=== PATIENT | female | born 1945 | race Caucasian/White ===

== ENCOUNTER 2019-02-25 03:00 | Inpatient (IN) | payer MEDICARE ==
[~2019-02-25] VITALS: Ht 162.6 cm; Wt 72.5 kg
[~2019-02-25 03:00] MED LIST: ALBU8.5H8 INH; DOXY100T PO; FLUT1BLS INH; GUAI600T31 PO; LEVO50TA PO; NICO-486 TD; OXYC5TAB2 PO; PRED20TA PO; UMEC1DIS INH
[2019-02-25] MEDS ORDERED: methylPREDNISolone SOD SUCC 125 MG/2 ML ONE (03:05)
[2019-02-25] MEDS ORDERED: methylPREDNISolone SOD SUCC 125 MG/2 ML IVPush STA (03:06)
[2019-02-25] MEDS ORDERED: MAGNESIUM SULFATE PMX 2GM/50ML 50 ML ONE (03:16)
--- NOTE | 2019-02-25 03:29 | NUR ---
Pt breathing significantly better and no longer utilizing accessory muscles. Talking in full sentences and pallor is better. Md aware. Md states no need for bipap and to place pt on oxi-mask. Oxi-mask applied.
[2019-02-25] MEDS ORDERED: LORazepam 2 MG/ML, 1ML IVPush ONE (03:30)
[2019-02-25] MEDS ORDERED: AZITHROMYCIN 500 MG in SODIUM CHLORIDE 0.9% 250 ML IVPB ONE (03:30)
[2019-02-25] MEDS ORDERED: MAGNESIUM SULFATE PMX 2GM/50ML 50 ML IV ONE (03:30)
[2019-02-25] MEDS ORDERED: ALBUTEROL 0.5%, 20ML NPPB SCH (03:30)
[2019-02-25 04:02] LABS: ALBUMIN 3.9 g/dL (3.4-5.0); ANION GAP 5 mmol/L (5-15); CALCIUM 9.1 mg/dL (8.5-10.1); CHLORIDE 104 mmol/L (98-107); CREATININE 0.83 mg/dL (0.55-1.02)
[2019-02-25 04:06] LABS: TROPONIN I < 0.015 ng/mL (0.000-0.045)
[2019-02-25 04:19] LABS: MEAN CORPUSCULAR HEMOGLOBIN 29.5 pg (27.0-34.8); MEAN CORPUSCULAR HGB CONC 32.4 g/dL (32.4-35.8); MEAN CORPUSCULAR VOLUME 90.8 fL (80-100); MEAN PLATELET VOLUME 12.4 fL (7.4-10.4); PLATELET COUNT 86 x10^3/uL (130-400); RED BLOOD COUNT 5.16 x10^6/uL (3.82-5.3); RED CELL DISTRIBUTION WIDTH 15.4 % (9.6-15.2)
[2019-02-25 04:40] LABS: BASOPHILS # (AUTO) 0.04 x10^3/uL (0-0.1); BASOPHILS % (AUTO) 1 % (0-1); EOSINOPHILS # (AUTO) 0.48 x10^3/uL (0-0.4); EOSINOPHILS % (AUTO) 6 % (1-7); LYMPHOCYTES % (AUTO) 30 % (22-44); MD SCAN; MONOCYTES # (AUTO) 0.45 x10^3/uL (0.2-0.8); MONOCYTES % (AUTO) 6 % (2-9); NEUTROPHILS # (AUTO) 4.52 x10^3/uL (1.8-6.8); NEUTROPHILS % (AUTO) 57 % (42-75)
--- NOTE | 2019-02-25 04:45 | NUR ---
Pt resting comfortably on gurney. Rr even and unlabored. Nadn. Talking in full sentences. All results back. Awaiting adm orders.
[2019-02-25] MEDS ORDERED: CEFTRIAXONE PMX 1GM/50ML 50 ML IV ONE (05:00)
[2019-02-25] MEDS ORDERED: CEFTRIAXONE PMX 1GM/50ML 50 ML ONE (05:03)
[2019-02-25 05:44] LABS: RAPID INFLUENZA A Negative (Negative); RAPID INFLUENZA B Negative (Negative)
[2019-02-25 08:00] VITALS: BP 124/72
[2019-02-25] MEDS: AZITHROMYCIN 500 MG TABLET PO SCH (10:18)
[2019-02-25] MEDS: methylPREDNISolone SOD SUCC 125 MG/2 ML IVPush SCH ×2 (10:18→16:58)
[2019-02-25] MEDS: ALBUTEROL SULFATE 2.5 MG/3 ML NPPB SCH ×2 (14:20→20:26)
[2019-02-25 15:43] VITALS: BP 106/63
[2019-02-25] MEDS: CEFTRIAXONE PMX 1GM/50ML 50 ML IV SCH (16:58)
[2019-02-25] MEDS: BUDESONIDE 0.5 MG/2 ML INHA NPPB SCH (20:26)
[2019-02-25 20:56] VITALS: BP 128/76
[2019-02-25 21:24] LABS: MICROSCOPIC AUTO
[2019-02-25 21:25] LABS: CULTURE INDICATED? YES
[2019-02-25] MEDS: TRAZODONE 50MG TABLET PO PRN (23:12)
[2019-02-26] MEDS: methylPREDNISolone SOD SUCC 125 MG/2 ML IVPush SCH ×3 (01:31→17:09)
[2019-02-26] MEDS: ALBUTEROL SULFATE 2.5 MG/3 ML NPPB SCH ×4 (02:17→19:27)
[2019-02-26 05:20] LABS: ANION GAP 3 mmol/L (5-15); CALCIUM 9.2 mg/dL (8.5-10.1); CHLORIDE 104 mmol/L (98-107); CREATININE 0.82 mg/dL (0.55-1.02)
[2019-02-26 05:27] LABS: BASOPHILS # (AUTO) 0.02 x10^3/uL (0-0.1); BASOPHILS % (AUTO) 0 % (0-1); EOSINOPHILS % (AUTO) 0 % (1-7); LYMPHOCYTES % (AUTO) 7 % (22-44); MD NO; MEAN CORPUSCULAR HGB CONC 32.6 g/dL (32.4-35.8); MEAN PLATELET VOLUME 11.2 fL (7.4-10.4); MONOCYTES # (AUTO) 0.18 x10^3/uL (0.2-0.8); MONOCYTES % (AUTO) 1 % (2-9); NEUTROPHILS # (AUTO) 14.25 x10^3/uL (1.8-6.8); NEUTROPHILS % (AUTO) 92 % (42-75); PLATELET COUNT 129 x10^3/uL (130-400); RED BLOOD COUNT 5.12 x10^6/uL (3.82-5.3); RED CELL DISTRIBUTION WIDTH 15.1 % (9.6-15.2)
[2019-02-26 06:57] VITALS: BP 137/74
[2019-02-26] MEDS: BUDESONIDE 0.5 MG/2 ML INHA NPPB SCH ×2 (07:40→19:27)
[2019-02-26] MEDS: AZITHROMYCIN 500 MG TABLET PO SCH (09:35)
[2019-02-26 12:48] VITALS: BP 113/67
[2019-02-26] MEDS: CEFTRIAXONE PMX 1GM/50ML 50 ML IV SCH (17:09)
[2019-02-26 19:19] VITALS: BP 120/69
[2019-02-26] MEDS: TRAZODONE 50MG TABLET PO PRN (22:22)
[2019-02-27] MEDS: methylPREDNISolone SOD SUCC 125 MG/2 ML IVPush SCH ×3 (01:08→16:34)
[2019-02-27 02:16] VITALS: BP 123/76
[2019-02-27] MEDS: ALBUTEROL SULFATE 2.5 MG/3 ML NPPB SCH ×4 (03:00→20:02)
[2019-02-27 07:36] LABS: ALBUMIN 3.6 g/dL (3.4-5.0); CALCIUM 8.7 mg/dL (8.5-10.1)
[2019-02-27 07:37] LABS: MEAN CORPUSCULAR HEMOGLOBIN 29.9 pg (27.0-34.8); MEAN CORPUSCULAR HGB CONC 32.7 g/dL (32.4-35.8); MEAN CORPUSCULAR VOLUME 91.7 fL (80-100); MEAN PLATELET VOLUME 9.6 fL (7.4-10.4); PLATELET COUNT 181 x10^3/uL (130-400); RED BLOOD COUNT 4.77 x10^6/uL (3.82-5.3); RED CELL DISTRIBUTION WIDTH 15.4 % (9.6-15.2)
[2019-02-27 07:40] LABS: ALANINE AMINOTRANSFERASE 33 U/L (12-78); ALKALINE PHOSPHATASE 51 U/L (45-117); BILIRUBIN,TOTAL 0.5 mg/dL (0.2-1.0); CREATININE 0.77 mg/dL (0.55-1.02); TOTAL PROTEIN 7.1 g/dL (6.4-8.2)
[2019-02-27] MEDS: AZITHROMYCIN 500 MG TABLET PO SCH (07:43)
[2019-02-27] MEDS: BUDESONIDE 0.5 MG/2 ML INHA NPPB SCH ×2 (07:53→20:03)
[2019-02-27 07:54] LABS: BASOPHILS % (AUTO) 0 % (0-1); EOSINOPHILS % (AUTO) 0 % (1-7); LYMPHOCYTES # (AUTO) 0.66 x10^3/uL (1-3.4); LYMPHOCYTES % (AUTO) 5 % (22-44); MD SCAN; MONOCYTES # (AUTO) 0.26 x10^3/uL (0.2-0.8); MONOCYTES % (AUTO) 2 % (2-9); NEUTROPHILS # (AUTO) 11.63 x10^3/uL (1.8-6.8); NEUTROPHILS % (AUTO) 93 % (42-75)
[2019-02-27 08:00] LABS: ANION GAP 4 mmol/L (5-15); CHLORIDE 104 mmol/L (98-107)
[2019-02-27 08:08] VITALS: BP 133/78
[2019-02-27 14:17] VITALS: BP 110/64
[2019-02-27] MEDS: CEFTRIAXONE PMX 1GM/50ML 50 ML IV SCH (16:34)
[2019-02-27 21:00] VITALS: BP 133/68
[2019-02-28] MEDS: methylPREDNISolone SOD SUCC 125 MG/2 ML IVPush SCH ×4 (01:05→20:51)
[2019-02-28 02:00] VITALS: BP 121/75
[2019-02-28] MEDS: ALBUTEROL SULFATE 2.5 MG/3 ML NPPB SCH ×4 (02:04→19:44)
[2019-02-28 06:09] LABS: CHLORIDE 104 mmol/L (98-107)
[2019-02-28 06:15] LABS: BASOPHILS % (AUTO) 0 % (0-1); EOSINOPHILS % (AUTO) 0 % (1-7); LYMPHOCYTES # (AUTO) 0.46 x10^3/uL (1-3.4); LYMPHOCYTES % (AUTO) 4 % (22-44); MD NO; MEAN CORPUSCULAR HEMOGLOBIN 30.1 pg (27.0-34.8); MEAN CORPUSCULAR HGB CONC 32.4 g/dL (32.4-35.8); MEAN CORPUSCULAR VOLUME 92.7 fL (80-100); MEAN PLATELET VOLUME 9.6 fL (7.4-10.4); MONOCYTES # (AUTO) 0.24 x10^3/uL (0.2-0.8); MONOCYTES % (AUTO) 2 % (2-9); NEUTROPHILS # (AUTO) 10.44 x10^3/uL (1.8-6.8); NEUTROPHILS % (AUTO) 94 % (42-75); PLATELET COUNT 230 x10^3/uL (130-400); RED BLOOD COUNT 5.01 x10^6/uL (3.82-5.3); RED CELL DISTRIBUTION WIDTH 15.2 % (9.6-15.2)
[2019-02-28 06:18] LABS: ANION GAP 3 mmol/L (5-15); CALCIUM 8.8 mg/dL (8.5-10.1); CREATININE 0.78 mg/dL (0.55-1.02)
[2019-02-28 06:49] VITALS: BP 117/61
[2019-02-28] MEDS: AZITHROMYCIN 500 MG TABLET PO SCH (07:50)
[2019-02-28] MEDS: BUDESONIDE 0.5 MG/2 ML INHA NPPB SCH ×2 (09:52→19:44)
[2019-02-28 12:09] VITALS: BP 115/65
[2019-02-28] MEDS: PANTOPRAZOLE 20MG TABLET PO SCH (12:51)
[2019-02-28] MEDS: CEFTRIAXONE PMX 1GM/50ML 50 ML IV SCH (16:58)
[2019-02-28 19:19] VITALS: BP 126/69
[2019-03-01] MEDS: PANTOPRAZOLE 20MG TABLET PO SCH ×2 (00:20→12:26)
[2019-03-01 02:21] VITALS: BP 135/71
[2019-03-01] MEDS: ALBUTEROL SULFATE 2.5 MG/3 ML NPPB SCH ×4 (03:00→15:00)
[2019-03-01] MEDS: methylPREDNISolone SOD SUCC 125 MG/2 ML IVPush SCH ×2 (04:39→12:26)
[2019-03-01 06:17] LABS: BASOPHILS # (AUTO) 0.01 x10^3/uL (0-0.1); BASOPHILS % (AUTO) 0 % (0-1); EOSINOPHILS % (AUTO) 0 % (1-7); LYMPHOCYTES # (AUTO) 0.85 x10^3/uL (1-3.4); LYMPHOCYTES % (AUTO) 9 % (22-44); MD NO; MEAN CORPUSCULAR HEMOGLOBIN 30.1 pg (27.0-34.8); MEAN CORPUSCULAR HGB CONC 32.7 g/dL (32.4-35.8); MEAN CORPUSCULAR VOLUME 91.8 fL (80-100); MEAN PLATELET VOLUME 9.4 fL (7.4-10.4); MONOCYTES # (AUTO) 0.42 x10^3/uL (0.2-0.8); MONOCYTES % (AUTO) 4 % (2-9); NEUTROPHILS # (AUTO) 8.46 x10^3/uL (1.8-6.8); NEUTROPHILS % (AUTO) 87 % (42-75); PLATELET COUNT 292 x10^3/uL (130-400); RED BLOOD COUNT 4.85 x10^6/uL (3.82-5.3); RED CELL DISTRIBUTION WIDTH 15.1 % (9.6-15.2)
[2019-03-01 06:19] LABS: ANION GAP 6 mmol/L (5-15); CALCIUM 8.6 mg/dL (8.5-10.1); CHLORIDE 102 mmol/L (98-107); CREATININE 0.77 mg/dL (0.55-1.02)
[2019-03-01] MEDS ORDERED: CEFD300C37 PO (07:11)
[2019-03-01] MEDS ORDERED: PRED10TA PO (07:11)
[2019-03-01] MEDS ORDERED: AZIT250T PO (07:11)
[2019-03-01 08:19] VITALS: BP 123/61
[2019-03-01] MEDS: AZITHROMYCIN 500 MG TABLET PO SCH (08:23)
[2019-03-01] MEDS: BUDESONIDE 0.5 MG/2 ML INHA NPPB SCH (09:00)
[2019-03-01 15:21] VITALS: BP 128/71
== END 2019-03-01 15:42 | disposition home or self-care (01) | DRG 193 ==
LOC: ED 05:05 → EDIP 05:10 → 3N 08:15
PROVIDERS: ADMIT Internal Medicine; ATTEND Hospitalist
DX: J18.9 Pneumonia, unspecified organism (principal); G93.41 Metabolic encephalopathy; J96.21 Acute and chronic respiratory failure with hypoxia; D69.6 Thrombocytopenia, unspecified; G31.84 Mild cognitive impairment of uncertain or unknown etiology; J43.9 Emphysema, unspecified; Z87.891 Personal history of nicotine dependence; Z99.81 Dependence on supplemental oxygen
CPT/HCPCS: 36415; 70450; 71045; 80048; 80053; 81001; 82040; 82607; 83735; 84100; 84443; 84484; 85025; 85379; 87040; 87086; 87400; 93005; 94640; 96365; 96366; 96368; 96375; G0378; J0456; J0696; J7613; J7626; 92523-GN; J2930; J3475; J7050

== ENCOUNTER 2019-06-29 10:57 | Inpatient (IN) | payer MEDICARE ==
[~2019-06-29] VITALS: Ht 175.3 cm; Wt 75.0 kg
[~2019-06-29 10:57] MED LIST changes: +AZIT250T PO; +CEFD300C37 PO; +GUAI200T37 PO; +PRED10TA PO
--- NOTE | 2019-06-29 11:27 | NUR ---
PT TO ROOM 29 PER [facility]. PT WAS AT HOME WITH EXACERBATION OF COPD. PT C/O DIFF BREATHING. [facility] PERFORMED 2 BREATHING TREATMENTS AND GAVE SOME SOLUMEDROL. [facility] STARTED AN 18GA IV TO RIGHT WRIST, LEAKING UNDER DRESSING, NO NEW LEAKING NOTED. SITE LOOKS GOOD. PT STATES "I CAN BREATH AGAIN" UPON ARRIVAL TO ED. PA IN TO ASSESS PATIENT. PT PLACED ON MONITOR AND GIVEN CALL LIGHT. DOOR CLOSED TO ROOM, AND PATIENT INSTRUCTED ON NEED TO KEEP MASK ON.
--- NOTE | 2019-06-29 12:40 | NUR ---
PT SITTING IN BED WATCHING TV. AWAITING TEST RESULTS. PT STATES "I CAN BREATH SO MUCH BETTER" PT DRINKING A GLASS OF WATER, BREATHING IS MUCH SLOWER AND UNLABORED. WILL CONTINUE TO MONITOR.
[2019-06-29 12:42] LABS: ALBUMIN 3.7 g/dL (3.4-5.0); ANION GAP 5 mmol/L (5-15); CALCIUM 8.9 mg/dL (8.5-10.1); CHLORIDE 109 mmol/L (98-107)
[2019-06-29 12:44] LABS: CREATININE 0.76 mg/dL (0.55-1.02)
[2019-06-29 13:31] LABS: MEAN CORPUSCULAR HEMOGLOBIN 29.7 pg (27.0-34.8); MEAN CORPUSCULAR HGB CONC 32.8 g/dL (32.4-35.8); MEAN CORPUSCULAR VOLUME 90.6 fL (80-100); MEAN PLATELET VOLUME 12.9 fL (7.4-10.4); RED BLOOD COUNT 4.61 x10^6/uL (3.82-5.3); RED CELL DISTRIBUTION WIDTH 13.9 % (9.6-15.2)
[2019-06-29 13:37] LABS: BASOPHILS # (AUTO) 0.03 x10^3/uL (0-0.1); BASOPHILS % (AUTO) 0 % (0-1); EOSINOPHILS # (AUTO) 0.39 x10^3/uL (0-0.4); EOSINOPHILS % (AUTO) 6 % (1-7); LYMPHOCYTES # (AUTO) 1.46 x10^3/uL (1-3.4); LYMPHOCYTES % (AUTO) 21 % (22-44); MD SCAN; MONOCYTES # (AUTO) 0.29 x10^3/uL (0.2-0.8); MONOCYTES % (AUTO) 4 % (2-9); NEUTROPHILS # (AUTO) 4.86 x10^3/uL (1.8-6.8); NEUTROPHILS % (AUTO) 69 % (42-75)
--- NOTE | 2019-06-29 13:37 | NUR ---
report received from mare alfaro.
[2019-06-29 13:48] LABS: PLATELET COUNT 43 x10^3/uL (130-400)
--- NOTE | 2019-06-29 13:48 | NUR ---
PLATELETS 43, NOTIFIED
--- NOTE | 2019-06-29 15:07 | NUR ---
PT RESTING IN [facility]. PT'S AOX4. RESPS EVEN AND UNLABORED.
[2019-06-29] MEDS ORDERED: ACETAMINOPHEN 325 MG TABLET PO PRN (15:30)
[2019-06-29] MEDS ORDERED: POLYETHYLENE GLYCOL 17 GM PACKET PO PRN (15:30)
[2019-06-29] MEDS ORDERED: BISACODYL 10 MG SUPP PR PRN (15:30)
[2019-06-29] MEDS ORDERED: GUAIFENESIN 200 MG TABLET PO PRN (15:30)
[2019-06-29] MEDS ORDERED: hydrALAzine 20 MG/ML, 1ML IVPush PRN (15:30)
[2019-06-29] MEDS ORDERED: PROMETHAZINE 25 MG/ML, 1ML IM PRN (15:30)
[2019-06-29] MEDS ORDERED: ZOLPIDEM 5MG TABLET PO PRN (15:30)
--- NOTE | 2019-06-29 15:33 | NUR ---
BEDSIDE COMODE AT BEDSIDE AT THIS TIME PER PT'S REQUEST.
[2019-06-29] MEDS ORDERED: methylPREDNISolone SOD SUCC 125 MG/2 ML ONE ×2 (15:44→16:30)
--- NOTE | 2019-06-29 15:55 | NUR ---
THIS RN CALLED MAIN ED BY PHONE TO GET SOLU-MEDROL FOR THIS PT.
[2019-06-29 15:56] LABS: FREE T4 (FREE THYROXINE) 0.96 ng/dL (0.76-1.46)
--- NOTE | 2019-06-29 16:00 | NUR ---
THIS RN CALLED FOR REPORT, BUT THE RN WAS IN THE PT'S ROOM AT THIS TIME. WAITING FOR CALL BACK.
--- NOTE | 2019-06-29 16:17 | NUR ---
THIS RN CALLED FOR REPORT AGAIN BUT THE RN WAS BUSY AND WAITING FOR CALL BACK.
--- NOTE | 2019-06-29 16:24 | NUR ---
PT SITTING IN [facility]. PT'S AOX4. RESPS EVEN AND UNLABORED. ALL MONITORS IN PLACE. CALL LIGHT WITHIN REACH.
[2019-06-29] MEDS ORDERED: ALBUTEROL SULFATE 2.5 MG/3 ML NPPB PRN (16:30)
[2019-06-29] MEDS: methylPREDNISolone SOD SUCC 125 MG/2 ML IVPush SCH ×2 (16:36→22:21)
--- NOTE | 2019-06-29 16:36 | NUR ---
PT MEDICATED PER [facility]. PT TOLERATED WELL. PT'S AOX4. RESPS EVEN AND UNLABORED.
--- NOTE | 2019-06-29 16:53 | NUR ---
REPORT GIVEN TO DEDRA DIALLO. ALL QUESTIONS ANSWERED.
[2019-06-29 17:16] LABS: HIT RESULT POSITIVE (NEGATIVE)
[2019-06-29 18:28] VITALS: BP 141/80
[2019-06-29] MEDS ORDERED: ALBUTEROL SULFATE 2.5 MG/3 ML NPPB SCH (20:00)
[2019-06-29 20:04] VITALS: BP 119/67
[2019-06-29] MEDS ORDERED: BUDESONIDE 0.5 MG/2 ML INHA INH SCH (21:00)
[2019-06-29] MEDS: ALBUTEROL HFA 90 MCG/SPRAY INH SCH ×2 (22:22→22:23)
[2019-06-29] MEDS: FAMOTIDINE 20 MG TABLET PO SCH (22:45)
[2019-06-29 23:50] VITALS: BP 122/70
[2019-06-30] MEDS: methylPREDNISolone SOD SUCC 125 MG/2 ML IVPush SCH (03:48)
[2019-06-30] MEDS: ALBUTEROL HFA 90 MCG/SPRAY INH SCH ×3 (06:00→15:04)
[2019-06-30 06:21] LABS: MEAN CORPUSCULAR HGB CONC 33.3 g/dL (32.4-35.8); MEAN CORPUSCULAR VOLUME 90.2 fL (80-100); MEAN PLATELET VOLUME 12.3 fL (7.4-10.4); PLATELET COUNT 88 x10^3/uL (130-400); RED BLOOD COUNT 4.77 x10^6/uL (3.82-5.3); RED CELL DISTRIBUTION WIDTH 13.8 % (9.6-15.2)
[2019-06-30 06:22] LABS: ANION GAP 7 mmol/L (5-15); CALCIUM 9.4 mg/dL (8.5-10.1); CHLORIDE 107 mmol/L (98-107); D-DIMER (DIC) 0.41 ug/mlFEU (0.00-0.52); PROTIME 10.3 Seconds (9.6-11.5)
[2019-06-30 06:23] LABS: CREATININE 0.81 mg/dL (0.55-1.02)
[2019-06-30 06:46] LABS: BASOPHILS # (AUTO) 0.02 x10^3/uL (0-0.1); BASOPHILS % (AUTO) 0 % (0-1); EOSINOPHILS % (AUTO) 0 % (1-7); LYMPHOCYTES # (AUTO) 1.11 x10^3/uL (1-3.4); LYMPHOCYTES % (AUTO) 13 % (22-44); MD SCAN; MONOCYTES # (AUTO) 0.11 x10^3/uL (0.2-0.8); MONOCYTES % (AUTO) 1 % (2-9); NEUTROPHILS # (AUTO) 7.58 x10^3/uL (1.8-6.8); NEUTROPHILS % (AUTO) 86 % (42-75)
[2019-06-30 07:05] VITALS: BP 124/67
[2019-06-30] MEDS ORDERED: (Umeclidinium Brm/Vilanterol Tr (Anoro Ellipta 62.5-25 Mcg Inh INH SCH (09:00)
[2019-06-30] MEDS: FAMOTIDINE 20 MG TABLET PO SCH (09:15)
[2019-06-30 12:19] VITALS: BP 108/73
[2019-06-30] MEDS ORDERED: QUETIAPINE 25MG TABLET PO SCH (16:00)
== END 2019-06-30 18:36 | disposition home or self-care (01) | DRG 190 ==
LOC: ED 11:03 → EDIP 14:05 → 2N 17:39 → 3WST 17:40
PROVIDERS: ADMIT Internal Medicine; ATTEND Hospitalist
DX: J44.1 Chronic obstructive pulmonary disease with (acute) exacerbation (principal); J96.21 Acute and chronic respiratory failure with hypoxia; G93.40 Encephalopathy, unspecified; D69.6 Thrombocytopenia, unspecified; F03.90 Unspecified dementia, unspecified severity, without behavioral disturbance, psychotic disturbance, mood disturbance, and anxiety; D3A.00 Benign carcinoid tumor of unspecified site; Z87.891 Personal history of nicotine dependence; Z99.81 Dependence on supplemental oxygen; Z03.818 Encounter for observation for suspected exposure to other biological agents ruled out; Z88.5 Allergy status to narcotic agent
CPT/HCPCS: 36415; 71045; 80048; 82040; 84439; 84443; 85025; 85049; 85379; 85384; 85610; 85730; 86022; 99285; G0378; J7613; J2930

== ENCOUNTER 2019-07-27 18:52 | Inpatient (IN) | payer MEDICARE ==
[~2019-07-27] VITALS: Ht 167.6 cm; Wt 78.6 kg
[2019-07-27] MEDS ORDERED: ALBUTEROL/IPRATROPIUM 2.5MG/0.5MG, 3 ML ONE ×2 (19:16→20:26)
[2019-07-27] MEDS ORDERED: MAGNESIUM SULFATE PMX 2GM/50ML 50 ML ONE (19:17)
[2019-07-27 19:29] LABS: BASOPHILS # (AUTO) 0.04 x10^3/uL (0-0.1); BASOPHILS % (AUTO) 1 % (0-1); EOSINOPHILS # (AUTO) 0.44 x10^3/uL (0-0.4); EOSINOPHILS % (AUTO) 7 % (1-7); LYMPHOCYTES # (AUTO) 1.38 x10^3/uL (1-3.4); LYMPHOCYTES % (AUTO) 22 % (22-44); MD NO; MEAN CORPUSCULAR HEMOGLOBIN 29.7 pg (27.0-34.8); MEAN CORPUSCULAR HGB CONC 33.2 g/dL (32.4-35.8); MEAN CORPUSCULAR VOLUME 89.5 fL (80-100); MEAN PLATELET VOLUME 11.7 fL (7.4-10.4); MONOCYTES # (AUTO) 0.33 x10^3/uL (0.2-0.8); MONOCYTES % (AUTO) 5 % (2-9); NEUTROPHILS # (AUTO) 4.07 x10^3/uL (1.8-6.8); NEUTROPHILS % (AUTO) 65 % (42-75); PLATELET COUNT 105 x10^3/uL (130-400); RED BLOOD COUNT 4.52 x10^6/uL (3.82-5.3); RED CELL DISTRIBUTION WIDTH 14.6 % (9.6-15.2)
[2019-07-27] MEDS ORDERED: MAGNESIUM SULFATE PMX 2GM/50ML 50 ML IV ONE (19:30)
[2019-07-27] MEDS ORDERED: ALBUTEROL/IPRATROPIUM 2.5MG/0.5MG, 3 ML NPPB ONE ×2 (19:30→20:30)
[2019-07-27] MEDS ORDERED: SODIUM CHLORIDE FLUSH 10ML SYR IVF ONE (19:30)
[2019-07-27 19:39] LABS: ALBUMIN 3.6 g/dL (3.4-5.0); ANION GAP 4 mmol/L (5-15); CALCIUM 9.1 mg/dL (8.5-10.1); CHLORIDE 107 mmol/L (98-107)
[2019-07-27 19:44] LABS: CREATININE 0.69 mg/dL (0.55-1.02); TROPONIN I < 0.015 ng/mL (0.000-0.045)
--- NOTE | 2019-07-27 19:51 | NUR ---
NEB TX IN PROGRESS. MAG PER JUN. ALL RESULTS BACK AT THIS TIME. NAD. CALL JORDAN IN REACH.
--- NOTE | 2019-07-27 20:03 | NUR ---
SHARMIN AUNGJOSE RAFAEL: [phone]. UPDATE.
--- NOTE | 2019-07-27 20:39 | NUR ---
TBADM. 2ND NEB IN PROG. LUNGS IMRPOVED, MUCH LESS RHONCHI, STILL INSP/EXP WHEEZES BILAT BASES.
--- NOTE | 2019-07-27 21:10 | NUR ---
GIVEN FOOD PER MD. UPDATED THAT PT TBADM.
--- NOTE | 2019-07-27 21:29 | NUR ---
REPORT TO VANCE DIALLO.
--- NOTE | 2019-07-27 21:32 | NUR ---
Report received from Ghassan RN. This RN to assume care. Bed requested for admit.
--- NOTE | 2019-07-27 21:46 | NUR ---
Report given to IMANI Vaca. Patient to be transferred to room 431.
[2019-07-27 22:34] VITALS: BP 109/56
[2019-07-28 01:18] VITALS: BP 128/69
[2019-07-28] MEDS ORDERED: GUAIFENESIN 200 MG TABLET PO PRN (01:30)
[2019-07-28] MEDS: CEFTRIAXONE PMX 1GM/50ML 50 ML IV SCH (05:17)
[2019-07-28] MEDS ORDERED: TEMPLATE NON-FORMULARY MED. (Albuterol Sulfate (Proair Hfa) 1 PUFF) INH SCH (06:00)
[2019-07-28] MEDS ORDERED: predniSONE 50MG TABLET PO SCH (08:00)
[2019-07-28 08:10] VITALS: BP 159/85
[2019-07-28] MEDS ORDERED: TEMPLATE NON-FORMULARY MED. (Umeclidinium Brm/Vilanterol Tr (Anoro Ellipta 62.5-25 Mcg Inh INH SCH (09:00)
[2019-07-28] MEDS: methylPREDNISolone SOD SUCC 125 MG/2 ML IVPush SCH ×3 (09:24→21:04)
[2019-07-28] MEDS: AZITHROMYCIN 500 MG in SODIUM CHLORIDE 0.9% 250 ML IV SCH (09:24)
[2019-07-28] MEDS: FLUTICASONE/VILANTEROL 100-25MCG/INH INH SCH (11:11)
[2019-07-28] MEDS: LORazepam 0.5MG TABLET PO PRN ×3 (11:11→21:05)
[2019-07-28 12:10] VITALS: BP 149/81
[2019-07-28] MEDS: ALBUTEROL HFA 90 MCG/SPRAY INH SCH ×3 (12:33→21:03)
[2019-07-28 21:14] VITALS: BP 134/66
[2019-07-29 02:45] VITALS: BP 146/80
[2019-07-29] MEDS: CEFTRIAXONE PMX 1GM/50ML 50 ML IV SCH (04:46)
[2019-07-29] MEDS: methylPREDNISolone SOD SUCC 125 MG/2 ML IVPush SCH ×4 (04:47→20:54)
[2019-07-29] MEDS: ALBUTEROL HFA 90 MCG/SPRAY INH SCH ×4 (06:00→20:54)
[2019-07-29 06:16] LABS: BASOPHILS # (AUTO) 0.02 x10^3/uL (0-0.1); BASOPHILS % (AUTO) 0 % (0-1); EOSINOPHILS % (AUTO) 0 % (1-7); LYMPHOCYTES % (AUTO) 10 % (22-44); MD NO; MEAN CORPUSCULAR HEMOGLOBIN 29.6 pg (27.0-34.8); MEAN CORPUSCULAR HGB CONC 32.9 g/dL (32.4-35.8); MEAN PLATELET VOLUME 11.1 fL (7.4-10.4); MONOCYTES # (AUTO) 0.22 x10^3/uL (0.2-0.8); MONOCYTES % (AUTO) 2 % (2-9); NEUTROPHILS # (AUTO) 8.94 x10^3/uL (1.8-6.8); NEUTROPHILS % (AUTO) 88 % (42-75); PLATELET COUNT 180 x10^3/uL (130-400); RED BLOOD COUNT 4.65 x10^6/uL (3.82-5.3); RED CELL DISTRIBUTION WIDTH 14.3 % (9.6-15.2)
[2019-07-29 06:20] LABS: ANION GAP 7 mmol/L (5-15); CALCIUM 9.2 mg/dL (8.5-10.1); CHLORIDE 104 mmol/L (98-107); CREATININE 0.71 mg/dL (0.55-1.02)
[2019-07-29 08:13] VITALS: BP 124/74
[2019-07-29] MEDS: FLUTICASONE/VILANTEROL 100-25MCG/INH INH SCH (08:56)
[2019-07-29] MEDS: AZITHROMYCIN 500 MG in SODIUM CHLORIDE 0.9% 250 ML IV SCH ×2 (08:56→22:00)
[2019-07-29 12:48] VITALS: BP 138/79
[2019-07-29 21:02] VITALS: BP 150/83
[2019-07-30 00:52] VITALS: BP 150/75
[2019-07-30] MEDS: ALBUTEROL HFA 90 MCG/SPRAY INH SCH ×4 (04:33→21:36)
[2019-07-30] MEDS: CEFTRIAXONE PMX 1GM/50ML 50 ML IV SCH (04:33)
[2019-07-30] MEDS: methylPREDNISolone SOD SUCC 125 MG/2 ML IVPush SCH ×3 (08:03→21:36)
[2019-07-30] MEDS: FLUTICASONE/VILANTEROL 100-25MCG/INH INH SCH (08:05)
[2019-07-30 08:06] VITALS: BP 150/81
[2019-07-30 14:48] VITALS: BP 147/77
[2019-07-30 19:24] VITALS: BP 121/75
[2019-07-30] MEDS: AZITHROMYCIN 500 MG in SODIUM CHLORIDE 0.9% 250 ML IV SCH (21:36)
[2019-07-31 02:09] VITALS: BP 129/62
[2019-07-31] MEDS: CEFTRIAXONE PMX 1GM/50ML 50 ML IV SCH (04:41)
[2019-07-31] MEDS: ALBUTEROL HFA 90 MCG/SPRAY INH SCH ×3 (05:44→16:45)
[2019-07-31 06:58] VITALS: BP 121/75
[2019-07-31] MEDS: methylPREDNISolone SOD SUCC 125 MG/2 ML IVPush SCH (09:10)
[2019-07-31] MEDS: FLUTICASONE/VILANTEROL 100-25MCG/INH INH SCH (09:46)
[2019-07-31 12:30] VITALS: BP 111/62
[2019-07-31] MEDS ORDERED: AZIT500T10 PO (15:00)
[2019-07-31] MEDS ORDERED: CEFD300C37 PO (15:00)
[2019-07-31] MEDS ORDERED: PRED10TA PO (15:29)
[2019-07-31 17:26] VITALS: BP 142/82
[2019-08-01] MEDS ORDERED: methylPREDNISolone SOD SUCC 125 MG/2 ML IVPush SCH (09:00)
== END 2019-07-31 17:54 | disposition home or self-care (01) | DRG 189 ==
LOC: ED 19:15 → INTOOBSV 20:29 → EDIP 20:29 → OBSVTOIN 20:29 → 4NW 21:57
PROVIDERS: ATTEND Internal Medicine
DX: J96.21 Acute and chronic respiratory failure with hypoxia (principal); J44.1 Chronic obstructive pulmonary disease with (acute) exacerbation; Z88.6 Allergy status to analgesic agent; Z20.828 Contact with and (suspected) exposure to other viral communicable diseases; Z87.891 Personal history of nicotine dependence; D69.6 Thrombocytopenia, unspecified
CPT/HCPCS: 36415; 71045; 80048; 82040; 83735; 83880; 84100; 84484; 85025; G0378; J0456; J0696; J2930; J3475; J7050; U0001

== ENCOUNTER 2019-09-15 19:20 | Emergency (ER) | payer MEDICARE ==
[~2019-09-15] VITALS: Ht 170.2 cm; Wt 79.0 kg
[~2019-09-15 19:20] MED LIST changes: +AZIT500T10 PO
--- NOTE | 2019-09-15 19:30 | NUR ---
pt presents with SOB that started this afternoon. HX copdEMS found O2 sats in the 80s. pt was bib [facility], had 2 duonebs and an albuterol treatement en route. pt still with SOB. RT at bedside with another breathing treatment. pt attached to all monitors. She denies pain.
--- NOTE | 2019-09-15 20:05 | NUR ---
ERP in room; patient states she feels better than when she came in.
[2019-09-15 21:28] LABS: BASOPHILS # (AUTO) 0.02 x10^3/uL (0-0.1); BASOPHILS % (AUTO) 0 % (0-1); EOSINOPHILS # (AUTO) 0.09 x10^3/uL (0-0.4); EOSINOPHILS % (AUTO) 1 % (1-7); LYMPHOCYTES # (AUTO) 0.63 x10^3/uL (1-3.4); LYMPHOCYTES % (AUTO) 8 % (22-44); MD NO; MEAN CORPUSCULAR HEMOGLOBIN 29.3 pg (27.0-34.8); MEAN CORPUSCULAR HGB CONC 32.7 g/dL (32.4-35.8); MEAN CORPUSCULAR VOLUME 89.4 fL (80-100); MEAN PLATELET VOLUME 10.3 fL (7.4-10.4); MONOCYTES # (AUTO) 0.13 x10^3/uL (0.2-0.8); MONOCYTES % (AUTO) 2 % (2-9); NEUTROPHILS % (AUTO) 90 % (42-75); PLATELET COUNT 141 x10^3/uL (130-400); RED BLOOD COUNT 4.64 x10^6/uL (3.82-5.3); RED CELL DISTRIBUTION WIDTH 14.8 % (9.6-15.2)
[2019-09-15 21:39] LABS: ALBUMIN 3.7 g/dL (3.4-5.0); ANION GAP 2 mmol/L (5-15); CALCIUM 8.5 mg/dL (8.5-10.1); CHLORIDE 106 mmol/L (98-107); CREATININE 0.91 mg/dL (0.55-1.02)
--- NOTE | 2019-09-15 21:47 | NUR ---
Collected COVID swab and delivered to lab.
[2019-09-15 22:43] VITALS: BP 106/52
--- NOTE | 2019-09-15 23:24 | NUR ---
Patient/Caregiver given discharge instructions and they have confirmed that they understand the instructions. Patient ambulatory with steady gait.
== END 2019-09-15 23:26 | disposition home or self-care (01) ==
LOC: ED 20:46
DX: J44.1 Chronic obstructive pulmonary disease with (acute) exacerbation (principal); Z20.828 Contact with and (suspected) exposure to other viral communicable diseases; R94.31 Abnormal electrocardiogram [ECG] [EKG]; Z87.891 Personal history of nicotine dependence
CPT/HCPCS: 36415; 71045; 80048; 82040; 84145; 85025; 93005; 94640; 99285; U0001

== ENCOUNTER 2019-10-21 20:15 | Emergency (ER) | payer MEDICARE ==
[2019-10-21 20:24] VITALS: BP 111/58
[2019-10-21] MEDS ORDERED: ALBUTEROL/IPRATROPIUM 2.5MG/0.5MG, 3 ML NPPB SCH (20:30)
[2019-10-21] MEDS ORDERED: ALBUTEROL/IPRATROPIUM 2.5MG/0.5MG, 3 ML ONE (20:46)
[2019-10-21] MEDS ORDERED: PLEASE ENTER HEIGHT AND WEIGHT MC SCH (21:00)
== END 2019-10-21 21:55 | disposition home or self-care (01) ==
LOC: ED 21:34
DX: J43.9 Emphysema, unspecified (principal); R06.02 Shortness of breath; R94.31 Abnormal electrocardiogram [ECG] [EKG]; Z87.891 Personal history of nicotine dependence
CPT/HCPCS: 71045; 93005; 94640; 99283

== ENCOUNTER 2019-12-13 22:06 | Inpatient (IN) | payer MEDICARE ==
[~2019-12-13] VITALS: Ht 170.2 cm; Wt 83.2 kg
--- NOTE | 2019-12-13 22:19 | NUR ---
Patient BIB [facility] c/o SOB since tonight. Hx of COPD. Patient denies CP or abd pain. Solumedrol and albuterol admin HOUSE SITTER. Patient arrived on CPAP and O2 sat was above 90%. Per EMS, patient's O2 sat on scene was 84%. Patient does not wear O2 at home. Patient's breathing is slightly labored, pursed lip breathing noted. Skin PWD.
--- NOTE | 2019-12-13 22:27 | NUR ---
PATIENT'S RESPIRATIONS HAVE IMPROVED. RESPIRATORY IN ROOM FOR PATIENT'S ARRIVAL. BREATHING TREATMENT INITIATED IN ROOM. PATIENT SWITCHED FROM BIPAP VIA EMS TO SIMPLE FACE MASK. TOLERATING WELL. PATIENT UPDATED ON PLAN OF CARE. NO ADDITIONAL NEEDS NOTED AT THIS TIME. PROVIDER AT BEDSIDE UPON PATIENT'S ARRIVAL.
[2019-12-13] MEDS ORDERED: ALBUTEROL SULFATE 2.5 MG/3 ML NPPB ONE (22:30)
[2019-12-13 22:33] LABS: BASOPHILS # (AUTO) 0.08 x10^3/uL (0-0.1); BASOPHILS % (AUTO) 1 % (0-1); EOSINOPHILS # (AUTO) 0.64 x10^3/uL (0-0.4); EOSINOPHILS % (AUTO) 7 % (1-7); LYMPHOCYTES # (AUTO) 2.95 x10^3/uL (1-3.4); LYMPHOCYTES % (AUTO) 30 % (22-44); MD NO; MEAN CORPUSCULAR HEMOGLOBIN 28.3 pg (27.0-34.8); MEAN CORPUSCULAR HGB CONC 31.9 g/dL (32.4-35.8); MEAN CORPUSCULAR VOLUME 88.9 fL (80-100); MEAN PLATELET VOLUME 11.3 fL (7.4-10.4); MONOCYTES # (AUTO) 0.63 x10^3/uL (0.2-0.8); MONOCYTES % (AUTO) 7 % (2-9); NEUTROPHILS # (AUTO) 5.48 x10^3/uL (1.8-6.8); NEUTROPHILS % (AUTO) 56 % (42-75); PLATELET COUNT 135 x10^3/uL (130-400); RED BLOOD COUNT 4.76 x10^6/uL (3.82-5.3); RED CELL DISTRIBUTION WIDTH 14.7 % (9.6-15.2)
--- NOTE | 2019-12-13 22:37 | NUR ---
LABS DRAWN WITH IV START, PATIENT TOLERATED WELL. LABS SENT VIA TUBE STATION.
[2019-12-13 22:50] LABS: ALBUMIN 3.8 g/dL (3.4-5.0); ANION GAP 4 mmol/L (5-15); CALCIUM 8.5 mg/dL (8.5-10.1); CHLORIDE 103 mmol/L (98-107); CREATININE 0.91 mg/dL (0.55-1.02)
[2019-12-13 22:54] LABS: TROPONIN I < 0.015 ng/mL (0.000-0.045)
--- NOTE | 2019-12-13 23:18 | NUR ---
PATIENT VERBALIZED APPROVAL TO SHARE MEDICAL INFORMATION WITH . MARK BARNES ABLE TO CONFIRM PATIENT IDENTIFIERS. WILL CALL MARK BACK WITH MORE INFORMATION REGARDING PATIENT'S PLAN OF CARE. [phone] POINT OF CARE CONTACT.
--- NOTE | 2019-12-13 23:19 | NUR ---
PATIENT MOVED TO ROOM 38, PATIENT IS STABLE. VITAL SIGNS STABLE. PATIENT UPDATED ON PLAN OF CARE. PROVIDER AT BEDSIDE WITH PATIENT.
--- NOTE | 2019-12-13 23:24 | NUR ---
CALLED REGARDING PATIENT'S PLAN OF CARE. PATIENT DENIES ANY ADDITIONAL NEEDS AT THIS TIME. PATIENT HAS AGREED TO BE ADMITTED TO THE HOSPITAL R/T DECREASE IN O2 STATUS WITHOUT OXYGEN. PATIENT DOES NOT REQUIRE OXYGEN AT BASELINE.
--- NOTE | 2019-12-13 23:28 | NUR ---
SPOKE WITH REGARDING PATIENT'S PLAN OF CARE. PATIENT'S STATED THAT SHE IS ON OXYGEN AT HOME 3LNC, HAS BEEN FOR THE LAST YEAR, HOWEVER THE PATIENT CONTINUES TO TURN OXYGEN TO 5LNC. PATIENT MAY NOT BE APPROPRIATE HISTORIAN.
--- NOTE | 2019-12-13 23:35 | NUR ---
Report received from IMANI Smith. This RN to assume care. Patient to be admitted.
[2019-12-14] MEDS ORDERED: AZITHROMYCIN 500 MG in SODIUM CHLORIDE 0.9% 250 ML IV SCH
[2019-12-14] MEDS ORDERED: methylPREDNISolone SOD SUCC 125 MG/2 ML IVPush ONE
[2019-12-14] MEDS ORDERED: methylPREDNISolone SOD SUCC 125 MG/2 ML ONE (00:19)
--- NOTE | 2019-12-14 00:21 | NUR ---
BREAK RN:SOLU MEDROL SHOULD BE ADMINISTERED AT 4AM PER ADMIT ORDERS.
[2019-12-14] MEDS ORDERED: ONDANSETRON ODT 4 MG PO PRN (00:30)
[2019-12-14] MEDS ORDERED: BISACODYL 10 MG SUPP PR PRN (00:30)
[2019-12-14] MEDS ORDERED: POLYETHYLENE GLYCOL 17 GM PACKET PO PRN (00:30)
[2019-12-14] MEDS ORDERED: ACETAMINOPHEN 325 MG TABLET PO PRN (00:30)
[2019-12-14 00:53] VITALS: BP 138/76
[2019-12-14] MEDS: methylPREDNISolone SOD SUCC 125 MG/2 ML IVPush SCH ×3 (03:31→15:58)
[2019-12-14 07:16] VITALS: BP 160/70
[2019-12-14] MEDS: ALBUTEROL HFA 90 MCG/SPRAY INH PRN (08:04)
[2019-12-14] MEDS: SENNA/DOCUSATE TABLET PO SCH (08:16)
[2019-12-14] MEDS: SODIUM CHLORIDE FLUSH 10ML SYR IVF SCH ×2 (08:16→21:27)
[2019-12-14] MEDS: AZITHROMYCIN 500 MG TABLET PO SCH (09:46)
[2019-12-14] MEDS: FLUTICASONE/VILANTEROL 200-25MCG/INH INH SCH (10:24)
[2019-12-14] MEDS: ALBUTEROL-IPRATROPIUM MDI INH INH SCH ×3 (10:24→21:27)
[2019-12-14] MEDS: GUAIFENESIN 200 MG TABLET PO SCH ×3 (11:34→21:26)
[2019-12-14 12:59] VITALS: BP 123/75
[2019-12-14] MEDS: ENOXAPARIN 40 MG/0.4 ML SQ SCH (14:39)
[2019-12-14 20:58] VITALS: BP 152/73
[2019-12-15] MEDS: methylPREDNISolone SOD SUCC 125 MG/2 ML IVPush SCH ×3 (00:07→15:44)
[2019-12-15] MEDS: ALBUTEROL HFA 90 MCG/SPRAY INH PRN ×2 (01:14→20:46)
[2019-12-15 01:31] VITALS: BP 145/75
[2019-12-15] MEDS: ALBUTEROL-IPRATROPIUM MDI INH INH SCH ×4 (02:43→21:42)
[2019-12-15] MEDS: GUAIFENESIN 200 MG TABLET PO SCH ×4 (05:10→20:46)
[2019-12-15 06:54] VITALS: BP 101/57
[2019-12-15] MEDS: SODIUM CHLORIDE FLUSH 10ML SYR IVF SCH ×2 (08:38→20:46)
[2019-12-15] MEDS: SENNA/DOCUSATE TABLET PO SCH (08:38)
[2019-12-15] MEDS: FLUTICASONE/VILANTEROL 200-25MCG/INH INH SCH (08:38)
[2019-12-15] MEDS: AZITHROMYCIN 500 MG TABLET PO SCH (08:38)
[2019-12-15 10:36] LABS: ALBUMIN 3.9 g/dL (3.4-5.0); ANION GAP 8 mmol/L (5-15); CALCIUM 9.5 mg/dL (8.5-10.1); CHLORIDE 106 mmol/L (98-107)
[2019-12-15 10:37] LABS: MEAN CORPUSCULAR HEMOGLOBIN 28.1 pg (27.0-34.8); MEAN CORPUSCULAR HGB CONC 31.9 g/dL (32.4-35.8); MEAN CORPUSCULAR VOLUME 88.1 fL (80-100); MEAN PLATELET VOLUME 10.4 fL (7.4-10.4); PLATELET COUNT 212 x10^3/uL (130-400); RED BLOOD COUNT 4.79 x10^6/uL (3.82-5.3); RED CELL DISTRIBUTION WIDTH 14.8 % (9.6-15.2)
[2019-12-15 10:41] LABS: ALANINE AMINOTRANSFERASE 23 U/L (12-78); ALKALINE PHOSPHATASE 57 U/L (45-117); BILIRUBIN,TOTAL 0.4 mg/dL (0.2-1.0); CREATININE 0.79 mg/dL (0.55-1.02); TOTAL PROTEIN 7.3 g/dL (6.4-8.2)
[2019-12-15 11:12] LABS: BASOPHILS # (AUTO) 0.01 x10^3/uL (0-0.1); BASOPHILS % (AUTO) 0 % (0-1); EOSINOPHILS % (AUTO) 0 % (1-7); LYMPHOCYTES # (AUTO) 0.71 x10^3/uL (1-3.4); LYMPHOCYTES % (AUTO) 4 % (22-44); MD SCAN; MONOCYTES # (AUTO) 0.38 x10^3/uL (0.2-0.8); MONOCYTES % (AUTO) 2 % (2-9); NEUTROPHILS # (AUTO) 15.19 x10^3/uL (1.8-6.8); NEUTROPHILS % (AUTO) 93 % (42-75)
[2019-12-15 13:19] VITALS: BP 120/60
[2019-12-15] MEDS: ENOXAPARIN 40 MG/0.4 ML SQ SCH (14:23)
[2019-12-15 22:11] VITALS: BP 131/63
[2019-12-16] MEDS: methylPREDNISolone SOD SUCC 125 MG/2 ML IVPush SCH ×3 (00:34→23:19)
[2019-12-16 02:17] LABS: MICROSCOPIC NOT IND
[2019-12-16] MEDS: ALBUTEROL-IPRATROPIUM MDI INH INH SCH ×4 (03:07→23:19)
[2019-12-16 03:15] VITALS: BP 153/72
[2019-12-16 05:30] LABS: BASOPHILS % (AUTO) 0 % (0-1); EOSINOPHILS % (AUTO) 0 % (1-7); LYMPHOCYTES # (AUTO) 0.69 x10^3/uL (1-3.4); LYMPHOCYTES % (AUTO) 7 % (22-44); MD NO; MEAN CORPUSCULAR HEMOGLOBIN 28.4 pg (27.0-34.8); MEAN CORPUSCULAR HGB CONC 32.1 g/dL (32.4-35.8); MEAN CORPUSCULAR VOLUME 88.7 fL (80-100); MEAN PLATELET VOLUME 10.2 fL (7.4-10.4); MONOCYTES # (AUTO) 0.22 x10^3/uL (0.2-0.8); MONOCYTES % (AUTO) 2 % (2-9); NEUTROPHILS % (AUTO) 91 % (42-75); PLATELET COUNT 234 x10^3/uL (130-400); RED BLOOD COUNT 4.45 x10^6/uL (3.82-5.3); RED CELL DISTRIBUTION WIDTH 14.4 % (9.6-15.2)
[2019-12-16] MEDS: GUAIFENESIN 200 MG TABLET PO SCH ×4 (05:52→23:19)
[2019-12-16 05:58] LABS: CHLORIDE 106 mmol/L (98-107)
[2019-12-16 06:26] LABS: CALCIUM 9.2 mg/dL (8.5-10.1)
[2019-12-16 06:47] LABS: ANION GAP 6 mmol/L (5-15)
[2019-12-16 07:35] VITALS: BP 142/79
[2019-12-16] MEDS: SENNA/DOCUSATE TABLET PO SCH ×2 (08:58→09:00)
[2019-12-16] MEDS: AZITHROMYCIN 500 MG TABLET PO SCH (08:58)
[2019-12-16] MEDS: SODIUM CHLORIDE FLUSH 10ML SYR IVF SCH ×2 (09:00→21:00)
[2019-12-16] MEDS: FLUTICASONE/VILANTEROL 200-25MCG/INH INH SCH (09:02)
[2019-12-16 13:56] VITALS: BP 116/68
[2019-12-16] MEDS: ENOXAPARIN 40 MG/0.4 ML SQ SCH (14:38)
[2019-12-16 20:47] VITALS: BP 126/67
[2019-12-17 01:49] VITALS: BP 149/83
[2019-12-17] MEDS: ALBUTEROL-IPRATROPIUM MDI INH INH SCH ×4 (04:55→20:44)
[2019-12-17] MEDS: GUAIFENESIN 200 MG TABLET PO SCH ×4 (04:55→20:45)
[2019-12-17 07:57] VITALS: BP 157/78
[2019-12-17] MEDS: methylPREDNISolone SOD SUCC 125 MG/2 ML IVPush SCH ×4 (10:30→20:45)
[2019-12-17] MEDS: SODIUM CHLORIDE FLUSH 10ML SYR IVF SCH ×2 (10:31→20:46)
[2019-12-17] MEDS: SENNA/DOCUSATE TABLET PO SCH (10:31)
[2019-12-17] MEDS: FLUTICASONE/VILANTEROL 200-25MCG/INH INH SCH (10:32)
[2019-12-17 13:24] VITALS: BP 104/66
[2019-12-17] MEDS: ENOXAPARIN 40 MG/0.4 ML SQ SCH (14:50)
[2019-12-17 20:47] VITALS: BP 123/68
[2019-12-17 21:03] VITALS: BP 135/83
[2019-12-18 00:22] VITALS: BP 156/88
[2019-12-18] MEDS: ALBUTEROL HFA 90 MCG/SPRAY INH PRN (00:54)
[2019-12-18] MEDS: GUAIFENESIN 200 MG TABLET PO SCH ×4 (06:18→20:31)
[2019-12-18] MEDS: ALBUTEROL-IPRATROPIUM MDI INH INH SCH ×4 (06:20→20:31)
[2019-12-18 06:43] LABS: BASOPHILS # (AUTO) 0.02 x10^3/uL (0-0.1); BASOPHILS % (AUTO) 0 % (0-1); EOSINOPHILS % (AUTO) 0 % (1-7); LYMPHOCYTES # (AUTO) 0.84 x10^3/uL (1-3.4); LYMPHOCYTES % (AUTO) 11 % (22-44); MD NO; MEAN CORPUSCULAR HEMOGLOBIN 27.8 pg (27.0-34.8); MEAN CORPUSCULAR HGB CONC 31.7 g/dL (32.4-35.8); MEAN CORPUSCULAR VOLUME 87.8 fL (80-100); MEAN PLATELET VOLUME 9.3 fL (7.4-10.4); MONOCYTES # (AUTO) 0.47 x10^3/uL (0.2-0.8); MONOCYTES % (AUTO) 6 % (2-9); NEUTROPHILS # (AUTO) 6.45 x10^3/uL (1.8-6.8); NEUTROPHILS % (AUTO) 83 % (42-75); PLATELET COUNT 323 x10^3/uL (130-400); RED BLOOD COUNT 4.84 x10^6/uL (3.82-5.3); RED CELL DISTRIBUTION WIDTH 14.2 % (9.6-15.2)
[2019-12-18 06:52] LABS: ANION GAP 6 mmol/L (5-15); CALCIUM 8.9 mg/dL (8.5-10.1); CHLORIDE 104 mmol/L (98-107)
[2019-12-18 07:16] VITALS: BP 141/75
[2019-12-18] MEDS: SODIUM CHLORIDE FLUSH 10ML SYR IVF SCH ×2 (09:00→20:31)
[2019-12-18] MEDS: FLUTICASONE/VILANTEROL 200-25MCG/INH INH SCH (10:20)
[2019-12-18] MEDS: methylPREDNISolone SOD SUCC 125 MG/2 ML IVPush SCH ×3 (10:21→20:31)
[2019-12-18 12:31] VITALS: BP 147/84
[2019-12-18] MEDS: ENOXAPARIN 40 MG/0.4 ML SQ SCH (13:06)
[2019-12-18] MEDS: SENNA/DOCUSATE TABLET PO SCH (13:06)
[2019-12-18 20:27] VITALS: BP 127/72
[2019-12-19] MEDS ORDERED: DIPHENHYDRAMINE 25 MG CAPSULE PO PRN (01:30)
[2019-12-19 01:33] VITALS: BP 142/82
[2019-12-19] MEDS: GUAIFENESIN 200 MG TABLET PO SCH ×2 (05:39→09:19)
[2019-12-19] MEDS: ALBUTEROL-IPRATROPIUM MDI INH INH SCH ×3 (05:39→15:13)
[2019-12-19 07:54] VITALS: BP 133/66
[2019-12-19] MEDS: SODIUM CHLORIDE FLUSH 10ML SYR IVF SCH (09:00)
[2019-12-19] MEDS: SENNA/DOCUSATE TABLET PO SCH (09:19)
[2019-12-19] MEDS: FLUTICASONE/VILANTEROL 200-25MCG/INH INH SCH (09:20)
[2019-12-19] MEDS: methylPREDNISolone SOD SUCC 125 MG/2 ML IVPush SCH (09:35)
[2019-12-19 13:32] VITALS: BP 112/56
[2019-12-19] MEDS: ENOXAPARIN 40 MG/0.4 ML SQ SCH (15:12)
== END 2019-12-19 17:28 | disposition home or self-care (01) | DRG 190 ==
LOC: ED 23:26 → EDIP 12-14 00:14 → 4NE 12-14 00:43 → 3N 12-15 18:35
PROVIDERS: ADMIT Student in an Organized Health Care Education/Training Program; ATTEND Internal Medicine
DX: J44.1 Chronic obstructive pulmonary disease with (acute) exacerbation (principal); J96.21 Acute and chronic respiratory failure with hypoxia; G93.41 Metabolic encephalopathy; Z99.81 Dependence on supplemental oxygen; T38.0X5A Adverse effect of glucocorticoids and synthetic analogues, initial encounter; Z88.6 Allergy status to analgesic agent; F09 Unspecified mental disorder due to known physiological condition; F17.210 Nicotine dependence, cigarettes, uncomplicated; D72.829 Elevated white blood cell count, unspecified; Z80.3 Family history of malignant neoplasm of breast; Z82.49 Family history of ischemic heart disease and other diseases of the circulatory system; Y92.89 Other specified places as the place of occurrence of the external cause
CPT/HCPCS: 36415; 71045; 80048; 80053; 81003; 82040; 84145; 84484; 85025; G0378; J0456; J1650; J2930; J7050; Q0163

== ENCOUNTER 2020-03-24 14:45 | Emergency (ER) | payer MEDICARE ==
[~2020-03-24] VITALS: Ht 172.7 cm; Wt 75.0 kg
--- NOTE | 2020-03-24 14:56 | NUR ---
PT BIB [facility] FOR SOB. PT IS HAS COPD AND IS ON 3-4L NC AT HOME. PT WAS RAPID BREATHING AT HOME. EMS REPORTS HER OXYGEN WAS 93% ON HER USUAL O2 BUT WORKING TO BREATHE. PT WAS GIVEN SOLU-MEDROL 125 MG IV AND TWO BREATHING TREATMENTS MMI TEACHER BY EMS. CALL LIGHT IN PLACE. WILL CONTNIUE TO MONITOR.
--- NOTE | 2020-03-24 15:05 | NUR ---
'S PHONE NUMBER: [phone]
[2020-03-24] MEDS ORDERED: ALBUTEROL/IPRATROPIUM 2.5MG/0.5MG, 3 ML NPPB ONE (15:30)
[2020-03-24] MEDS ORDERED: ALBUTEROL/IPRATROPIUM 2.5MG/0.5MG, 3 ML ONE (15:33)
[2020-03-24 15:35] LABS: BASOPHILS % (AUTO) 1 % (0-1); EOSINOPHILS % (AUTO) 3 % (1-7); LYMPHOCYTES % (AUTO) 14 % (22-44); MEAN CORPUSCULAR HEMOGLOBIN 28.1 pg (27.0-34.8); MEAN CORPUSCULAR HGB CONC 32.3 g/dL (32.4-35.8); MEAN PLATELET VOLUME 10.3 fL (7.4-10.4); MONOCYTES % (AUTO) 4 % (2-9); NEUTROPHILS % (AUTO) 78 % (42-75); PLATELET COUNT 134 x10^3/uL (130-400); RED BLOOD COUNT 4.74 x10^6/uL (3.82-5.3); RED CELL DISTRIBUTION WIDTH 15.3 % (9.6-15.2)
[2020-03-24 15:41] LABS: MD NO
[2020-03-24 15:42] LABS: ALBUMIN 3.7 g/dL (3.4-5.0); ANION GAP 5 mmol/L (5-15); CALCIUM 8.6 mg/dL (8.5-10.1); CHLORIDE 108 mmol/L (98-107); CREATININE 0.89 mg/dL (0.55-1.02)
[2020-03-24 16:05] LABS: TROPONIN I < 0.015 ng/mL (0.000-0.045)
--- NOTE | 2020-03-24 17:27 | NUR ---
SPOKE WITH PT'S . WILL BE HERE IN APPROX 20 MIN.
[2020-03-24 17:28] VITALS: BP 126/74
== END 2020-03-24 18:05 | disposition home or self-care (01) ==
LOC: ED 15:29
DX: J44.1 Chronic obstructive pulmonary disease with (acute) exacerbation (principal); R06.02 Shortness of breath; R94.31 Abnormal electrocardiogram [ECG] [EKG]
CPT/HCPCS: 36415; 71045; 80048; 82040; 84484; 85025; 93005; 94640; 99285

== ENCOUNTER 2020-06-10 16:43 | Emergency (ER) | payer MEDICARE ==
[~2020-06-10] VITALS: Ht 170.2 cm; Wt 70.0 kg
--- NOTE | 2020-06-10 17:10 | NUR ---
Pt arrives via [facility] from home. Pt reports hx COPD, denies any other hx. Reports increased SOB and coughing today. Does not wear oxygen at home. Arrives on 5L nasal cannula at 99%, 20g IV in place. Albuterol, duoneb, 125 solumedrol given JAVA PORTAL DEVELOPER and pt reports she feels much better now. On [facility] arrival, pt was unable to speak in full sentences d/t SOB, now able to sit up in bed and converse. RR was 30 JAVA PORTAL DEVELOPER, now RR 20. Pt has frequent, productive cough, wheezes in lungs lower bases bilaterally. Hooked up to monitor. Pt's Seth called, gave him update per pt permission.
[2020-06-10 18:04] LABS: BASOPHILS % (AUTO) 1 % (0-1); EOSINOPHILS % (AUTO) 4 % (1-7); LYMPHOCYTES % (AUTO) 13 % (22-44); MEAN CORPUSCULAR HEMOGLOBIN 28.5 pg (27.0-34.8); MEAN CORPUSCULAR HGB CONC 32.4 g/dL (32.4-35.8); MEAN PLATELET VOLUME 10.5 fL (7.4-10.4); MONOCYTES % (AUTO) 4 % (2-9); NEUTROPHILS % (AUTO) 78 % (42-75); PLATELET COUNT 145 x10^3/uL (130-400); RED BLOOD COUNT 4.72 x10^6/uL (3.82-5.3); RED CELL DISTRIBUTION WIDTH 15.9 % (9.6-15.2)
[2020-06-10 18:05] LABS: MD NO
[2020-06-10 18:13] LABS: ALBUMIN 3.7 g/dL (3.4-5.0); ANION GAP 5 mmol/L (5-15); CALCIUM 8.6 mg/dL (8.5-10.1); CHLORIDE 106 mmol/L (98-107); CREATININE 0.84 mg/dL (0.55-1.02)
--- NOTE | 2020-06-10 18:24 | NUR ---
Pt sitting up in bed, resting, down to 2L nasal cannula satting 98%, denies needs at this time.
--- NOTE | 2020-06-10 18:52 | NUR ---
Pt's husbands phone number: [phone].
--- NOTE | 2020-06-10 18:54 | NUR ---
Report to IMANI Clarke.
--- NOTE | 2020-06-10 18:55 | NUR ---
ASSUMED CARE OF PT FROM IMANI ROJAS. PT AMBULATED WITH O2 WITH STEADY GAIT, PT MAINTAINED O2 SAT OVER 95% FOR DURATION OF WALK WITH 2L OF O2 NC, PER PT THIS IS HER BASELINE. PT RESTING IN [facility], MONITORING IN PLACE, VIJAYA AT THIS TIME, PER PT NO NEEDS, WCTM.
[2020-06-10] MEDS ORDERED: AMOXICILLIN 500 MG CAPSULE ONE (19:58)
[2020-06-10] MEDS ORDERED: AZITHROMYCIN 500 MG TABLET ONE (19:58)
[2020-06-10] MEDS ORDERED: AZITHROMYCIN 500 MG TABLET PO ONE (20:00)
[2020-06-10] MEDS ORDERED: AMOXICILLIN 500 MG CAPSULE PO ONE (20:00)
--- NOTE | 2020-06-10 20:20 | NUR ---
PT'S , SHARMIN, CALLED TO COME DRIVE PT HOME. SHARMIN STATES HE WILL BE HERE WITHIN 30 MINUTES.
[2020-06-10 21:01] VITALS: BP 123/61
== END 2020-06-10 21:04 | disposition home or self-care (01) ==
LOC: ED 20:45
DX: R06.02 Shortness of breath (principal); R00.0 Tachycardia, unspecified; J44.9 Chronic obstructive pulmonary disease, unspecified; Z88.5 Allergy status to narcotic agent
CPT/HCPCS: 36415; 71045; 80048; 82040; 85025; 93005; 99285

== ENCOUNTER → 2020-07-18 | Outpatient (CLI) | payer MEDICARE | END | disposition home or self-care (01) | LOC: CFH 12:07 | PROVIDERS: ATTEND Internal Medicine | DX: R91.8 Other nonspecific abnormal finding of lung field (principal); D3A.090 Benign carcinoid tumor of the bronchus and lung; J43.9 Emphysema, unspecified; J84.10 Pulmonary fibrosis, unspecified; K80.20 Calculus of gallbladder without cholecystitis without obstruction; K76.89 Other specified diseases of liver; E04.2 Nontoxic multinodular goiter | CPT/HCPCS: 71250 ==

== ENCOUNTER 2020-09-26 09:59 | Emergency (ER) | payer MEDICARE ==
[~2020-09-26] VITALS: Ht 172.7 cm; Wt 70.3 kg
--- NOTE | 2020-09-26 10:41 | NUR ---
PT WC'D TO ROOM 25 W/ C/O SOB ON EXERTION. PT HERSELF DENIES ANY NEW SX. PER SPOUSE PT WAS HAVING SOB WHILE ATTEMPTING TO AMBULATE TO [facility] THIS AM. PT WAS BROUGHT UPSTAIRS VIA WC TO APPT AND WAS TOLD TO COME TO ED. PT RESTING ON GURNEY. NADN. MONITORS APPLIED. VSS. PIV INITIATED. WARM BLANKET PROVIDED. CALL LIGHT IN REACH.
[2020-09-26] MEDS ORDERED: SODIUM CHLORIDE FLUSH 10ML SYR IVF ONE (11:00)
[2020-09-26 11:20] LABS: BASOPHILS % (AUTO) 2 % (0-1); EOSINOPHILS % (AUTO) 11 % (1-7); LYMPHOCYTES % (AUTO) 26 % (22-44); MEAN CORPUSCULAR HEMOGLOBIN 28.9 pg (27.0-34.8); MEAN CORPUSCULAR HGB CONC 32.6 g/dL (32.4-35.8); MEAN PLATELET VOLUME 11.2 fL (7.4-10.4); MONOCYTES % (AUTO) 7 % (2-9); NEUTROPHILS % (AUTO) 55 % (42-75); PLATELET COUNT 122 x10^3/uL (130-400); RED BLOOD COUNT 4.65 x10^6/uL (3.82-5.3); RED CELL DISTRIBUTION WIDTH 14.9 % (9.6-15.2)
[2020-09-26 11:30] LABS: ALBUMIN 3.7 g/dL (3.4-5.0); ANION GAP 3 mmol/L (5-15); CHLORIDE 104 mmol/L (98-107)
[2020-09-26] MEDS ORDERED: ALBUTEROL/IPRATROPIUM 2.5MG/0.5MG, 3 ML ONE (11:34)
--- NOTE | 2020-09-26 11:39 | NUR ---
RT AT BEDSIDE.
[2020-09-26 11:54] LABS: CREATININE 0.77 mg/dL (0.55-1.02)
[2020-09-26 11:55] LABS: ALANINE AMINOTRANSFERASE 21 U/L (12-78); ALKALINE PHOSPHATASE 70 U/L (45-117); BILIRUBIN,TOTAL 0.5 mg/dL (0.2-1.0)
--- NOTE | 2020-09-26 12:00 | NUR ---
PT RESTING ON GURNEY. NADN. BHARDWAJ.
[2020-09-26 12:49] VITALS: BP 128/64
--- NOTE | 2020-09-26 12:49 | NUR ---
PT RESTING ON GURNEY. NADN. BHARDWAJ.
[2020-09-26] MEDS ORDERED: ALBUTEROL/IPRATROPIUM 2.5MG/0.5MG, 3 ML NPPB ONE (13:00)
--- NOTE | 2020-09-26 13:08 | NUR ---
PT CHART REVIEWED AND PLACED FOR RECHECK.
== END 2020-09-26 13:44 | disposition home or self-care (01) ==
LOC: ED 12:13
DX: J44.9 Chronic obstructive pulmonary disease, unspecified (principal); Z20.822 Contact with and (suspected) exposure to COVID-19; R00.0 Tachycardia, unspecified; R06.02 Shortness of breath; G89.29 Other chronic pain; Z87.891 Personal history of nicotine dependence; Z88.5 Allergy status to narcotic agent
CPT/HCPCS: 36415; 71045; 80053; 84145; 85025; 93005; 94640; 99285; U0003; U0005